=== PATIENT | male | born 1965 | race Hispanic/Latino ===

== ENCOUNTER → 2024-07-17 | Outpatient (CLI) | payer OTHER ==
[2024-07-17 10:45] LABS: BASOPHILS # (AUTO) 0.02 K/uL (0.00-0.20); BASOPHILS % (AUTO) 0.4 % (0.0-5.0); EOSINOPHILS # (AUTO) 0.22 K/uL (0.00-0.70); EOSINOPHILS % (AUTO) 3.9 % (0.0-8.0); HEMATOCRIT 46.4 % (36-48); IMMATURE GRANULOCYTE ABSOLUTE 0.02 K/uL (0-1); LYMPHOCYTES # (AUTO) 1.9 K/uL (1.0-4.8); LYMPHOCYTES % (AUTO) 32.7 % (21.0-51.0); MEAN CORPUSCULAR HEMOGLOBIN 29.4 pg (27.0-33.0); MEAN CORPUSCULAR VOLUME 89.2 fL (79-99); MONOCYTES # (AUTO) 0.4 K/uL (0.1-1.0); MONOCYTES % (AUTO) 7.4 % (3.0-13.0); NEUTROPHILS # (AUTO) 3.1 K/uL (1.8-7.7); NEUTROPHILS % (AUTO) 55.2 % (40.0-77.0); PLATELET COUNT (AUTO) 149 K/uL (130-400); RED CELL DISTRIBUTION WIDTH 13.5 % (11.0-15.5); WHITE BLOOD COUNT (AUTO) 5.7 K/uL (4.8-10.8)
[2024-07-17 11:22] LABS: BILIRUBIN,TOTAL 0.5 mg/dL (0.2-1.0); CREATININE 1.2 mg/dL (0.5-1.0); POTASSIUM 5.1 mmol/L (3.5-5.1); THYROID STIMULATING HORMONE 0.69 uIU/mL (0.36-3.74); TOTAL PROTEIN, SERUM 7.5 g/dL (6.0-8.3)
== END | disposition home or self-care (01) ==
LOC: LAB 09:47 → EDSEX 09:47
PROVIDERS: ATTEND Family Medicine
DX: Z12.5 Encounter for screening for malignant neoplasm of prostate (principal); E78.5 Hyperlipidemia, unspecified; Z00.00 Encounter for general adult medical examination without abnormal findings
CPT/HCPCS: 36415; 80053; 80061; 84153; 84439; 84443; 84481; 85025

== ENCOUNTER → 2024-11-14 | Outpatient (CLI) | payer OTHER ==
[2024-11-14 10:51] LABS: ASPARTATE AMINOTRANSFERASE 27.0 U/L (10-37); CREATININE 1.0 mg/dL (0.5-1.3); GLOMERULAR FILTR. RATE CALC 88.0 mL/min (>90); GLUCOSE,RANDOM 99.0 mg/dL (70-105); SODIUM SERUM 143.0 mmol/L (136-145); TOTAL PROTEIN, SERUM 6.8 g/dL (6.0-8.3); UREA NITROGEN, BLOOD 15.0 mg/dL (7-18)
== END | disposition home or self-care (01) ==
LOC: LAB 10:05
DX: I11.9 Hypertensive heart disease without heart failure (principal); K21.9 Gastro-esophageal reflux disease without esophagitis
CPT/HCPCS: 36415; 80053; 82043; 82570; 83013

== ENCOUNTER 2025-02-26 08:26 | Emergency (ER) | payer OTHER ==
[~2025-02-26] VITALS: Ht 167.6 cm; Wt 88.0 kg
[2025-02-26 08:52] LABS: IMMATURE GRANULOCYTE ABSOLUTE 0.02 K/uL (0-1); NUCLEATED RED BLOOD CELLS 0.0 % (0.0-0.19); PLATELET COUNT (AUTO) 142 K/uL (130-400); RED BLOOD CELL COUNT(AUTO) 5.09 MIL/uL (4.50-6.20); RED CELL DISTRIBUTION WIDTH 13.6 % (11.0-15.5); WHITE BLOOD COUNT (AUTO) 6.4 K/uL (4.8-10.8)
[2025-02-26 09:01] LABS: CREATININE 1.0 mg/dL (0.5-1.3); GLOMERULAR FILTR. RATE CALC 88.0 mL/min (>90); GLUCOSE,RANDOM 106.0 mg/dL (70-105); SODIUM SERUM 141.0 mmol/L (136-145); UREA NITROGEN, BLOOD 14.0 mg/dL (7-18)
--- NOTE | 2025-02-26 09:03 | HMCIMG ---
EXAM: CR Chest, 1 View. CLINICAL HISTORY: CP COMPARISON: None provided. FINDINGS: LUNGS: The lungs show no infiltrate or other acute finding. PLEURAL SPACES: No pleural effusion or pneumothorax. MEDIASTINUM: The cardiomediastinal silhouette is within normal limits. BONES: No aggressive appearing osseous lesion seen. IMPRESSION: No acute cardiopulmonary pathology is evident. /[place]
[2025-02-26 09:52] LABS: ASPARTATE AMINOTRANSFERASE 25.0 U/L (10-37); TOTAL PROTEIN, SERUM 6.9 g/dL (6.0-8.3)
[2025-02-26 10:57] VITALS: BP 131/76; PULSE 64; RESP 16; TEMP 98.1; O2SAT 98
[2025-02-26] MEDS ORDERED: HYDR-3830 PO (11:14)
--- NOTE | 2025-02-26 11:14 | ERN ---
ED Note History of Present Illness Stated Complaint: CHEST PAIN Chief Complaint: Chest Pain Time Seen by MD: 08:58 Dictation: 59-year-old male presenting to the emergency department with intermittent chest pain over the past few days patient reports that his mother just and they have been having family issues and a few arguments. 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 Aguilera. Allergies: Coded Allergies: iodine (Unverified Allergy, Unknown, 02/26/25) Past Medical History Past Medical History: CAD, Hypertension Surgical History: Appendectomy, Tonsillectomy, Other Surgical History Other: HEART CATH WITH STENT PLACEMENT. Review of System Dictation Constitutional: Negative for fever,chills, and weight loss Eyes: Negative for injury, pain,redness, and discharge ENT: Negative for injury,pain or swelling Cardiovascular: Per HPI Respiratory: Negative for shortness of breath, cough, and wheezing, Abdomen/GI: Negative for abdominal pain, nausea, vomiting, diarrhea, and consti pation Back: Negative for injury and pain : Negative for injury, bleeding and discharge MS/Extremity: Negative for injury and deformity Skin: Negative for rash, and discoloration Neuro: Negative for headache, weakness, numbness, tingling, and seizure Psych: Negative for suicide ideation, homicidal ideation, and hallucinations Initial Vital Sign VS Vital Signs Date Time Temp Pulse Resp B/P (MAP) Pulse Ox O2 Delivery O2 Flow Rate FiO2 02/26/25 08:29 98.1 61 16 137/79 98 Room Air 0 02/26/25 10:57 21 Physical Exam Dictation General: awake, alert, NAD Head/Face: Normocephalic, atraumatic Eyes: PERRL, EOMI, vision at baseline ENT: oral cavity clear, TMs clear, no signs of infection Neck: Trachea midline, supple, no nuchal rigidity Cardiovascular: RRR, normal S1/S2, No MRGs, no JVD Respiratory: CTAB, no respiratory distress, No rales or wheezes Abdomen: Soft, non-tender, non-distended, normal bowel sounds, no guarding or rebound. Skin: Warm, dry, normal turgor, no rash MS/Extremity: Pulses equal, no cyanosis, neurovascular intact, FROM Neuro: COAx4, GCS 15, strength 5/5, CN 2-12 intact, normal cerebellar exam, normal gait, Psych: Normal behavior, mood, and affect normal Results (Laboratory/Radiology) Laboratory/Radiology Laboratory Tests Test 02/26/25 08:46 02/26/25 10:33 White Blood Count 6.4 K/uL (4.8-10.8) Red Blood Count 5.09 MIL/uL (4.50-6.20) Hemoglobin 14.7 g/dL (14.0-18.0) Hematocrit 44.4 % (42-54) Mean Corpuscular Volume 87.2 fL (79-99) Mean Corpuscular Hemoglobin 28.9 pg (27.0-33.0) Mean Corpuscular Hemoglobin Concent 33.1 g/dL (32.0-36.0) Red Cell Distribution Width 13.6 % (11.0-15.5) Platelet Count 142 K/uL (130-400) Mean Platelet Volume 10.8 fL (7.5-10.5) H Immature Granulocyte % (Auto) 0.3 % (0-1) Neutrophils (%) (Auto) 61.5 % (40.0-77.0) Lymphocytes (%) (Auto) 29.0 % (21.0-51.0) Monocytes (%) (Auto) 6.1 % (3.0-13.0) Eosinophils (%) (Auto) 2.5 % (0.0-8.0) Basophils (%) (Auto) 0.6 % (0.0-5.0) Neutrophils # (Auto) 3.9 K/uL (1.8-7.7) Lymphocytes # (Auto) 1.9 K/uL (1.0-4.8) Monocytes # (Auto) 0.4 K/uL (0.1-1.0) Eosinophils # (Auto) 0.16 K/uL (0.00-0.70) Basophils # (Auto) 0.04 K/uL (0.00-0.20) Absolute Immature Granulocyte (auto 0.02 K/uL (0-1) Nucleated Red Blood Cells 0.0 % (0.0-0.19) Sodium Level 141 mmol/L (136-145) Potassium Level 4.3 mmol/L (3.5-5.1) Chloride Level 104 mmol/L (101-111) Carbon Dioxide Level 29 mmol/L (21-32) Blood Urea Nitrogen 14 mg/dL (7-18) Creatinine 1.0 mg/dL (0.5-1.3) Glomerular Filtration Rate Calc 88 mL/min (>90) Random Glucose 106 mg/dL (70-105) H Total Calcium 8.9 mg/dL (8.5-10.1) Total Bilirubin 0.5 mg/dL (0.2-1.0) Direct Bilirubin 0.1 mg/dL (0.0-0.3) Aspartate Amino Transf (AST/SGOT) 25 U/L (10-37) Alanine Aminotransferase (ALT/SGPT) 40 U/L (12-78) Alkaline Phosphatase 76 U/L (50-136) Troponin I High Sensitivity 7 ng/L (4-75) 6 ng/L (4-75) Total Protein 6.9 g/dL (6.0-8.3) Albumin 3.9 g/dL (3.5-5.0) Lipase 123 U/L (16-77) H Labs Reviewed?: Yes EKG Comment: Heart rate 62 normal sinus rhythm normal intervals, no STEMI or STEMI equivalent ED Course ED Course Orders Procedure Category Date Status Time Cbc With Differential LAB 02/26/25 Complete 08:35 Basic Metabolic Panel LAB 02/26/25 Complete 08:35 Troponin I High LAB 02/26/25 Complete Sensitivity 08:35 Chest 1vw RAD 02/26/25 Resulted 08:35 12 Lead Ekg Tracing- EKG 02/26/25 Logged Technical 08:35 Hepatic Function Panel LAB 02/26/25 Complete 09:02 Lipase LAB 02/26/25 Complete 09:02 Troponin I High LAB 02/26/25 Complete Sensitivity 10:21 Alprazolam 0.5mg PHA 02/26/25 Complete (Xanax 0.5mg) 11:06 Current Medications Medications (Trade) Dose Ordered Sig/Joyce Route PRN Reason Start Time Stop Time Status Last Admin Dose Admin Alprazolam (XANax 0.5MG) 0.5 mg ONCE STAT PO 02/26/25 11:06 02/26/25 11:08 DC Vital Signs Date Time Temp Pulse Resp B/P (MAP) Pulse Ox O2 Delivery O2 Flow Rate FiO2 02/26/25 10:57 98.1 64 16 131/76 98 Room Air* 0 21 02/26/25 08:29 98.1 61 16 137/79 98 Room Air 0 Medical Decision Making MDM MDM: Differential diagnosis: Rationale: Tests considered and ordered secondary to shared decision making include: Previous outside records reviewed: Old ER visits. Risk of complication and/or morbidity or mortality of patient management: None Medications-Per medication reconciliation Need for hospitalization: Patient does not meet criteria for hospitalization. Need for emergency major/minor surgery: No There are no social concerns with this patient. Prescription drug management Prescriptions will include symptomatic care Patient's prior external medical records from other ER visits were reviewed by me as indicated. Prior testing and results from previous visits were reviewed. Prior tests were taken into account with medical decision making and resource utilization, independent historian/historians were used to obtain complete medical history. I independently interpreted the test that were performed, results were reviewed by me and considered findings on radiology if ordered. Medical management and examination interpretation discussions were had by me with other qualified healthcare professionals as indicated for the patient's care. 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 DX & DISP Disposition: Discharge Departure Impression: Primary Impression: Chest pain Condition: Stable Scripts Hydroxyzine HCl (Hydroxyzine HCl) 10 Mg Tablet 1 TAB PO BID for anxiety for 10 Days, #20 TAB 0 Refills Prov: LUISITO ATWOOD MD 02/26/25 Referrals: DELILAH ARCE MD (PCP) LUISITO ATWOOD MD Feb 26, 2025 11:14
--- NOTE | 2025-02-26 13:05 | EKG ---
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
== END 2025-02-26 11:24 | disposition home or self-care (01) ==
LOC: EDH 08:26
DX: R07.89 Other chest pain (principal); I10 Essential (primary) hypertension; I25.10 Atherosclerotic heart disease of native coronary artery without angina pectoris; Z88.8 Allergy status to other drugs, medicaments and biological substances; Z90.89 Acquired absence of other organs; Z90.49 Acquired absence of other specified parts of digestive tract; Z95.5 Presence of coronary angioplasty implant and graft
CPT/HCPCS: 36415; 71045; 80048; 80076; 83690; 84484; 85025; 93005; 99285

== ENCOUNTER 2025-03-19 06:07 | Day surgery (SDC) | payer OTHER ==
--- NOTE | 2025-03-15 11:02 | EKG ---
[facility] Test Date: 2025-03-15 Test Time: 11:00:06 Pat Name: TWIN SANTOYO Department: [facility] Room: Gender: M Pest Control Service Technician: [id number] : 1965 Requested By: LEONARD KING Order Number: [id number] Reading MD: Ramone Martell Measurements Intervals [place] Rate: 57 P: 36 ND: 196 QRS: -5 QRSD: 84 T: 10 QT: 416 QTc: 404 Interpretive Statements Sinus bradycardia Inferior infarct , age undetermined Compared to ECG 02/26/2025 08:28:12 Myocardial infarct finding now present Sinus rhythm no longer present Electronically Signed On 03-18-2025 13:04:36 [employer]K ARTS INSTRUCTOR by Ramone Martell Please click the below link to view image of tracing.
[2025-03-15 11:07] VITALS: BP 135/86; PULSE 64; RESP 18; TEMP 98.1
[2025-03-15 11:13] LABS: IMMATURE GRANULOCYTE ABSOLUTE 0.01 K/uL (0-1); NUCLEATED RED BLOOD CELLS 0.0 % (0.0-0.19); PLATELET COUNT (AUTO) 139 K/uL (130-400); RED BLOOD CELL COUNT(AUTO) 4.99 MIL/uL (4.50-6.20); RED CELL DISTRIBUTION WIDTH 13.7 % (11.0-15.5); WHITE BLOOD COUNT (AUTO) 4.2 K/uL (4.8-10.8)
[2025-03-15 11:17] LABS: APPEARANCE,URINE CLEAR (CLEAR); GLUCOSE, URINE (UA) NEGATIVE (NEGATIVE); LEUKOCYTE ESTERASE ,URINE NEGATIVE Leu/uL (NEGATIVE); NITRATE,URINE NEGATIVE (NEGATIVE); OCCULT BLOOD,URINE NEGATIVE (NEGATIVE)
[2025-03-15 11:19] LABS: CREATININE 1.1 mg/dL (0.5-1.3); GLOMERULAR FILTR. RATE CALC 78.0 mL/min (>90); GLUCOSE,RANDOM 100.0 mg/dL (70-105); SODIUM SERUM 141.0 mmol/L (136-145); UREA NITROGEN, BLOOD 16.0 mg/dL (7-18)
[2025-03-15 11:23] LABS: ADD UA MICROSCOPIC NO
[2025-03-15 11:24] LABS: INR 1.03 (0.85-1.15)
[2025-03-19] VITALS (9 sets, daily range): BP systolic 103–124; BP diastolic 50–80; PULSE 54–64; RESP 12–15; TEMP 97.2–97.5
[~2025-03-19] VITALS: Ht 167.6 cm; Wt 93.4 kg
[~2025-03-19 06:07] MED LIST: ASHW300T2 PO; ASPI-1005 PO; CHOL100046 PO; EZET10TA80 PO; FLUT16H NASAL; MELO-108 PO; METO-408 PO; MONT-39 PO; OMEG1000 PO; ROSU40TA88 PO; TADA20TA PO; TELM20TA8 PO
[2025-03-19] MEDS ORDERED: IODIXANOL 320 MG/ML 100 ML VIAL ONE ×2 (07:11→08:55)
[2025-03-19] MEDS ORDERED: LIDOCAINE HCL 400MG/20ML VIAL ONE (07:11)
[2025-03-19] MEDS ORDERED: HEParin-NS 1,000 UNIT/500 ML 1,000 ML IV ONE (07:12)
[2025-03-19] MEDS ORDERED: NITROGLYCERIN 50MG VIAL ONE (07:12)
[2025-03-19] MEDS ORDERED: MIDAZOLAM HCL 1 MG/ML 2ML VIAL ONE ×2 (07:36→07:51)
[2025-03-19] MEDS ORDERED: FAMOTIDINE 20MG VIAL IV ONE (07:36)
[2025-03-19] MEDS ORDERED: ASPIRIN 325MG EC TAB PO ONE (08:10)
--- NOTE | 2025-03-19 09:19 | PRN ---
PERIPHERAL ANGIOGRAM WITH RUNOFF: ATTENDING: Kt Aguilera MD DATE: 03/19/2025 INDICATION: Claudication Abnormal lower extremity arterial Dopplers PAD PROCEDURE: Conscious sedation Ultrasound-guided right common femoral arterial access Abdominal aortogram Catheter placement in the left SFA Selective right and left peripheral angiogram with runoff IVUS of the left popliteal and SFA IVL/shockwave lithotripsy of the left distal SFA and popliteal artery Status post successful IVUS guided, IV L/[employer]/DCB and stenting of the left distal SFA and popliteal artery (6 x 60 mm self expanding stent) Perclose hemostasis of the right common femoral artery PROCEDURE DETAILS: Following informed consent the patient is taken to the quality assurance/r&d lab technician in the fasting state a condition where he was draped and sterilized in usual fashion. Access obtained via the right common femoral artery under ultrasound guidance with 1st while past puncture. We placed a six Mauritanian arterial sheath in the right common femoral artery which was then aspirated and flushed. We then advanced an 035 wire into the distal abdominal aorta under fluoroscopic guidance. We then advanced a five [place]ian omni catheter over the wire and performed an abdominal aortogram. We then directed the Omni catheter into the left iliac and advanced the 035 glide advantage into the left SFA under fluoroscopic guidance. We then advanced the Omni catheter into the left SFA and performed left lower extremity angiogram with runoff. Following review of the films decision was made to inte rvene on patient's critical left popliteal stenosis. We exchanged the six [place]itanian arterial sheath for a 7 x 65 cm arterial sheath which was advanced into the left mid SFA under fluoroscopic guidance. [place] [address] [place] of IV heparin, 324 of aspirin and 300 mg of Plavix and following therapeutic ACT we advanced a [place] into the distal left BEN and fluoroscopic guidance. We then advanced an IVUS catheter over the wire and performed imaging on pullback to delineate lesion morphology and characteristics of the left popliteal and SFA artery. We then advanced a six by 60 mm shockwave balloon which was inflated to four and six YANIQUE serially to perform a total of six lithotripsy section. We then deployed a 6 x 40 mm DCB which was inflated in the left distal SFA popliteal artery to 10 YANIQUE for a total of 3 minutes. 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 We performed repeat IVUS imaging confirming dissection. At this point we then deployed a 6 x 60 self expanding stent within the left distal SFA and popliteal artery. We then post dilated this using a 6 x 40 mm noncompliant balloon to 10 and 28 cm respectively. We provided additional 300 mcg of nitroglycerin and repeat angiogram revealed jain of brisk flow with no dissections or perforations. At this time we retracted the seven by 65 cm arterial sheath into the right common femoral artery and performed a right lower extremity angiogram with runoff. We then removed the sheath under a Perclose with patent hemostasis. Patient tolerated procedure well with no postprocedure complications transferred to quality assurance/r&d lab technician holding stable condition. The findings are listed below FINDINGS: Abdominal aorta is patent LEFT: Common iliac is patent External iliac is patent Internal iliac is patent Common femoral artery is patent Profunda artery is patent SFA is patent all the way to the distal segment where it becomes calcified 90- 95% Popliteal artery has a 95% calcified stenosis Anterior tibial artery is patent to the foot Tibioperoneal trunk is patent Posterior tibial artery is patent to the foot Peroneal artery is patent to the foot Pedal arch is patent/incomplete RIGHT: Common iliac is patent External iliac is patent Internal iliac is patent Common femoral artery is patent Profunda artery is patent SFA is patent Popliteal artery is patent Anterior tibial artery is patent to the foot Tibioperoneal trunk is patent Posterior tibial artery is patent to the foot Peroneal artery is patent to the foot Pedal arch is patent/incomplete INTERVENTION: Status post successful IVUS guided, IV L/[employer]/DCB and stenting of the left distal SFA and popliteal artery (6 x 60 mm self expanding stent) COMPLICATIONS: None CONTRAST: 220ml PLAN: Patient required 3-6 months of dual antiplatelet therapy (aspirin 81 mg q.day/Plavix 75 mg q.day) additional high-intensity statin therapy Aggressive lifestyle and risk factor modifications along with tight glycemic control Groin precautions and patient can be discharged following 4 hours of bedrest Patient is to follow up in Cardiology Clinic in 1-2 weeks post discharge MD FERNANDO Hu JAMES R MD Mar 19, 2025 09:19
[2025-03-19] MEDS ORDERED: 0.9%NACL 1000ML 1,000 ML IV SCH (09:30)
[2025-03-19] MEDS ORDERED: DEXTROSE 50%-WATER 50 ML DISP.SYRIN IV PRN (09:30)
[2025-03-19] MEDS ORDERED: GLUCAGON 1MG KIT 1 MG ML IM PRN (09:30)
[2025-03-19] MEDS ORDERED: CLOP-31 PO (09:56)
--- NOTE | 2025-03-19 13:06 | NUR ---
Right Femoral site clean, dry and intact. No sign of bleeding, bruising or hematoma. Instructed Patient and Family of precautions and expectations until discharge. All voiced understanding. Full and complete discharge instructions given to Patient and Family both verbally and in writing. Tolerated fluids and voided in bathroom. PIV removed with catheter tip intact. W/C to POV with Family to home.
== END 2025-03-19 13:08 | disposition home or self-care (01) ==
LOC: DAH 06:07
PROVIDERS: ATTEND Student in an Organized Health Care Education/Training Program
DX: I70.212 Atherosclerosis of native arteries of extremities with intermittent claudication, left leg (principal); I25.10 Atherosclerotic heart disease of native coronary artery without angina pectoris; I10 Essential (primary) hypertension; E78.5 Hyperlipidemia, unspecified; I25.83 Coronary atherosclerosis due to lipid rich plaque; Z90.89 Acquired absence of other organs; Z82.49 Family history of ischemic heart disease and other diseases of the circulatory system; Z91.041 Radiographic dye allergy status; Z79.899 Other long term (current) drug therapy
CPT/HCPCS: 80048; 83880; 85025; 85610; 85730; 81003; 36415; 93005; 99156; 99157 ×5; 75625; 75716; 37252; 85347 ×3; A4223 ×3; C1725 ×2; C1876; C1894 ×2; C1760; C1893; C2623; C1769 ×2; C1753; C9765; J1200; J1308; J3010; J3490 ×2; J2919; J1644 ×3; J2250 ×2; Q9967 ×2; A4215; A4222; A4221; A4663; A4216; A4606; 37253; 96360; 96361